=== PATIENT | male | born 1990 | race Caucasian/White ===

== ENCOUNTER 2022-02-20 01:18 | Emergency (ER) | payer MEDICAID ==
[~2022-02-20] VITALS: Ht 177.8 cm; Wt 68.0 kg
[2022-02-20 01:49] VITALS: BP 127/87
== END 2022-02-20 05:06 | disposition left against medical advice (07) ==
LOC: ER 01:18 → EDBD 01:18 → ER 02:10
DX: R45.851 Suicidal ideations (principal); R44.0 Auditory hallucinations; Z53.21 Procedure and treatment not carried out due to patient leaving prior to being seen by health care provider